=== PATIENT | male | born 1960 | race Caucasian/White ===

== ENCOUNTER 2018-06-01 06:08 | Day surgery (SDC) | payer BC ==
[2018-05-31 10:23] VITALS: BMI 33.0
[2018-06-01] MEDS ORDERED: DESFLURANE GAS 240 ML BOTTLE IH ONE (07:28)
[2018-06-01] MEDS ORDERED: DEXMEDETOMIDINE HCL 200 MCG/2 ML IVPB ONE (07:28)
[2018-06-01] MEDS ORDERED: IBUPROFEN 800 MG/8 ML IJ IVPB ONE (07:28)
[2018-06-01] MEDS ORDERED: SODIUM CHLORIDE 0.9% P/F 10 ML VIAL IJ ONE (07:30)
[2018-06-01] MEDS ORDERED: DEXAMETHASONE SOD PHOSPHATE 4 MG/1 ML VIAL ONE (07:30)
[2018-06-01] MEDS ORDERED: LIDOCAINE HCL/PF 2% SDV 5ML VIAL ONE (07:30)
[2018-06-01] MEDS ORDERED: ceFAZolin SODIUM 1 GM VIAL ONE (07:30)
[2018-06-01] MEDS ORDERED: PROPOFOL 20 ML ONE ×2 (07:31→07:45)
[2018-06-01] MEDS ORDERED: SUCCINYLCHOLINE CHLORIDE 200 MG/10 ML VIAL ONE (07:31)
[2018-06-01] MEDS ORDERED: MIDAZOLAM HCL 2 MG/2 ML SINGLE DOSE VIAL ONE (07:31)
--- NOTE | 2018-06-01 08:10 | HP ---
Admitting History and Physical - Admission Chief Complaint: back sebaceous cyst History of Present Illness: 58 y.o. male with history of infected back sebaceous cyst 2 months ago requiring I & D. Patient now presents for excision of the residual cyst wall. History Source: Patient Limitations to Obtaining History: No Limitations - Smoking History Smoking history: Never smoked - Alcohol/Substance Use Hx Alcohol Use: Yes (occas) Home Medications - Allergies Allergies/Adverse Reactions: Allergies Allergy/AdvReac Type Severity Reaction Status Date / Time No Known Drug Allergies Allergy Verified 05/31/18 10:28 - Home Medications Home Medications: Ambulatory Orders Atorvastatin Ca [Lipitor] 40 mg PO HS 06/01/18 Fenofibrate Nanocrystallized [Tricor] 145 mg PO DAILY 06/01/18 Ibuprofen 1 tab PO TID PRN #30 tablet 06/01/18 Latanoprost 2.5 ml OP DAILY 06/01/18 Ramipril 5 mg PO DAILY 06/01/18 Timolol Maleate 5 ml OP DAILY 06/01/18 Review of Systems - Review of Systems Constitutional: reports: No Symptoms Eyes: reports: No Symptoms HENT: reports: No Symptoms Neck: reports: No Symptoms Cardiovascular: reports: No Symptoms Respiratory: reports: No Symptoms Gastrointestinal: reports: No Symptoms Genitourinary: reports: No Symptoms Musculoskeletal: reports: No Symptoms Integumentary: reports: No Symptoms Physical Examination Vital Signs: Vital Signs Temperature 98.1 F 06/01/18 06:30 Pulse Rate 62 06/01/18 06:30 Respiratory Rate 20 06/01/18 06:30 Blood Pressure 127/83 06/01/18 06:30 O2 Sat by Pulse Oximetry (%) 95 06/01/18 06:30 Constitutional: Yes: Well Nourished Eyes: Yes: Conjunctiva Clear HENT: Yes: Normocephalic Neck: Yes: Supple Cardiovascular: Yes: Regular Rate and Rhythm Respiratory: Yes: CTA Bilaterally Integumentary: Yes: Other (2 cm scar with a central sinus and ill-defined nodule ) Problem List - Problems (1) Sebaceous cyst Assessment/Plan: excision of back sebaceous cyst under MAC Code(s): L72.3 - SEBACEOUS CYST
[2018-06-01] MEDS ORDERED: ceFAZolin SODIUM 1 GM VIAL IVPB ONE (08:19)
[2018-06-01] MEDS ORDERED: BENZOIN TINCTURE SWABSTICK TP ONE (08:39)
[2018-06-01] MEDS ORDERED: ONDANSETRON 4 MG/2 ML VIAL IVPUSH PRN (09:14)
[2018-06-01] MEDS ORDERED: oxyCODONE HCL 5 MG TABLET PO PRN (09:14)
[2018-06-01] MEDS ORDERED: LACTATED RINGERS SOLUTION 1,000 ML IV SCH (09:15)
--- NOTE | 2018-06-01 09:26 | OP ---
DATE OF OPERATION: 06/01/2018 PROCEDURE: Excision of back sebaceous cyst. PREOPERATIVE DIAGNOSIS: Sebaceous cyst of the back. POSTOPERATIVE DIAGNOSIS: Sebaceous cyst of the back. SURGEON: Clement Day MD ANESTHESIA: Local with sedation. FINDINGS ON PROCEDURE: This is a 58-year-old male who presented 2 months ago with an infected sebaceous cyst of the back with an abscess, and incision and drainage of the abscess was done at the office with subsequent resolution of the problem. Now, patient presents for excision of the cystic mass. Consent was obtained after discussing the risks, benefits, and alternatives of the procedure. Patient was brought to the operating room and placed in supine or left lateral decubitus position. Intravenous sedation was given by anesthesia team. The operative site was prepped and draped in the usual sterile fashion. Using lidocaine 1% with epinephrine, local anesthesia was administered to the proposed incision site. A 2 x 0.5 cm elliptical incision was made using scalpel blade No. 15. Resection was carried down to the deep dermis. Further dissection using Metzenbaum scissors was done combined with Bovie cautery down to the subcutaneous tissue incorporating the residual cyst wall together with the ellipse of skin. The wound was undermined to about 0.5 cm on each wound margin using Metzenbaum scissors and Bovie cautery. Hemostasis was achieved using Bovie cautery. The wound was irrigated with sterile normal saline. The wound was then closed with interrupted Vicryl 3-0 suture for the dermis and continuous Biosyn 4-0 suture for the subcuticular layer. The wound closure was reinforced with Steri-Strips and covered with pressure dressing. The patient was transferred to the post-anesthesia care unit in satisfactory condition. ESTIMATED BLOOD LOSS: About 2 mL. WOUND CLASS: Clean. Jerrod [id number] MTDD
[2018-06-01 10:49] VITALS: BP 123/52; PULSE 57; TEMP 97.8
--- NOTE | 2018-06-04 15:15 | PATH ---
Surgical Pathology Report Patient Name: AKILAH SKELTON Med. Rec. #: [id number] /Age/Gender: 1960 (Age: 58) / M Account: [id number] Location: [facility] Taken: 06/01/2018 Received: 06/01/2018 Reported: 06/04/2018 Physicians: Clement Day M.D. Specimen(s) Received SEBACEOUS CYST Clinical History Sebaceous cyst of back Final Diagnosis SEBACEOUS CYST, BACK, EXCISION: SKIN AND UNDERLYING SUBCUTANEOUS TISSUE WITH CHRONIC INFLAMMATION, ASSOCIATED GIANT CELL REACTION, AND FIBROSIS. NO EPITHELIAL CYST LINING IDENTIFIED. Comment: Findings may represent a ruptured and inflamed cyst with associated reactive changes. Suggest clinical correlation. Electronically Signed Dali Hickman M.D. Gross Description Received in formalin labeled "sebaceous cyst from back," is a 1.2 x 0.3 cm adams, elliptical, unoriented portion of skin excised to depth of 1.0 cm. Sectioning reveals fibrous tissue. No definitive cyst is identified grossly. The specimen is serially sectioned and entirely submitted in one cassette. /06/01/2018 saudi06/01/2018
== END 2018-06-01 10:10 | disposition home or self-care (01) ==
LOC: JASU-SURG 06:08
PROVIDERS: ATTEND Surgery
PROC: 0HB6XZZ Excision of Back Skin, External Approach (ICD-10-PCS; principal; 2018-06-01 08:00)
DX: L72.3 Sebaceous cyst (principal)
CPT/HCPCS: 88304-TC

== ENCOUNTER 2023-11-29 03:08 | Emergency (ER) | payer BC ==
[2023-11-29 03:22] VITALS: BP 97/65; PULSE 71; RESP 20; TEMP 97.4; BMI 27.1
[2023-11-29] MEDS ORDERED: KETOROLAC TROMETHAMINE 15 MG/ML VIAL ONE (03:47)
[2023-11-29] MEDS ORDERED: METHOCARBAMOL 500 MG TABLET ONE (03:47)
[2023-11-29 03:50] LABS: BASO % 0.2 % (0-2.0); EOS % 0.4 % (0-4.5); HEMATOCRIT 51.4 % (35.4-49); HEMOGLOBIN 16.9 GM/dL (11.7-16.9); LYMPH % 14.1 % (8-40); MCH 27.3 pg (25.7-33.7); MEAN CELL VOLUME 82.7 fl (80-96); MEAN PLT VOLUME 8.9 fl (7.5-11.1); MONO % 5.6 % (3.8-10.2); NEUT % 79.7 % (42.8-82.8); PLATELET COUNT 280 10^3/uL (134-434); RBC 6.21 M/mm3 (4.00-5.60); RDW 14.2 % (11.9-15.9); WHITE BLOOD COUNT 14.1 K/mm3 (4.0-10.0)
[2023-11-29] MEDS: METHOCARBAMOL 500 MG TABLET PO ONE (03:52)
[2023-11-29] MEDS: KETOROLAC TROMETHAMINE 15 MG/ML VIAL IVPUSH ONE (03:52)
[2023-11-29] MEDS ORDERED: LIDOCAINE 5% TOPICAL PATCH ONE (04:11)
[2023-11-29 04:13] LABS: POTASSIUM 4.1 mmol/L (3.5-5.1)
[2023-11-29 04:14] LABS: CALCIUM 9.5 mg/dL (8.5-10.1)
[2023-11-29 04:15] LABS: ALBUMIN 4.5 g/dl (3.4-5.0); BLOOD UREA NITROGEN 18.5 mg/dL (7-18); MAGNESIUM 2.4 mg/dL (1.8-2.4)
[2023-11-29] MEDS: LACTATED RINGERS SOLUTION 1000 ML INFUS.BAG IV ONE (04:16)
[2023-11-29] MEDS: LIDOCAINE 5% TOPICAL PATCH TP ONE (04:16)
[2023-11-29 04:18] LABS: CREATININE 1.4 mg/dL (0.55-1.3)
[2023-11-29 04:20] LABS: BILIRUBIN,TOTAL 0.5 mg/dL (0.2-1); TOT PROT 7.7 g/dl (6.4-8.2)
[2023-11-29 05:10] LABS: HIV INTERPRETATION NEGATIVE (NEGATIVE)
[2023-11-29 15:37] LABS: N-TERMINAL BNP 17.5 pg/ml (5-125)
[2023-11-29] MEDS ORDERED: LIDOCAINE PATCH REMOVAL MC SCH (22:00)
== END 2023-11-29 05:47 | disposition home or self-care (01) ==
LOC: JER 03:08
PROC: 3E0333Z Introduction of Anti-inflammatory into Peripheral Vein, Percutaneous Approach (ICD-10-PCS; principal; 2023-11-29)
DX: M54.50 Low back pain, unspecified (principal); X50.0XXA Overexertion from strenuous movement or load, initial encounter
CPT/HCPCS: 36415; 71045-TC-FY; 80053; 83605; 83735; 83880; 84484; 85025; 86803; 86850; 86900; 86901; 87389; 93005; 93010; 99285-25

== ENCOUNTER 2023-11-29 13:23 | Inpatient (IN) | payer BC ==
[2023-11-29] MEDS ORDERED: METHOCARBAMOL 500 MG TABLET ONE (14:23)
[2023-11-29] MEDS: METHOCARBAMOL 500 MG TABLET PO ONE (15:00)
[2023-11-29 15:09] LABS: POTASSIUM 5.1 mmol/L (3.5-5.1)
[2023-11-29 15:12] LABS: ALBUMIN 3.9 g/dl (3.4-5.0); BLOOD UREA NITROGEN 15.6 mg/dL (7-18); CALCIUM 7.7 mg/dL (8.5-10.1)
[2023-11-29 15:15] LABS: CREATININE 1.1 mg/dL (0.55-1.3)
[2023-11-29 15:17] LABS: BILIRUBIN,TOTAL 0.5 mg/dL (0.2-1); TOT PROT 6.9 g/dl (6.4-8.2)
[2023-11-29 15:36] LABS: N-TERMINAL BNP 17.6 pg/ml (5-125)
[2023-11-29] MEDS ORDERED: METHOCARBAMOL 750 MG TABLET PO PRN (15:41)
[2023-11-29] MEDS ORDERED: LIDOCAINE 5% TOPICAL PATCH TP PRN (15:45)
[2023-11-29 18:07] VITALS: BMI 31.3
[2023-11-29] MEDS: DEXAMETHASONE SOD PHOSPHATE 10 MG/1 ML VIAL IM SCH (18:56)
[2023-11-29] MEDS ORDERED: DEXAMETHASONE SOD PHOSPHATE 10 MG/1 ML VIAL IVPB SCH (19:30)
[2023-11-29] MEDS: ALBUTEROL SO4 2.5/IPRATROPIUM 0.5 INH SOL 3 ML VIAL.NEB. NEB SCH (20:02)
[2023-11-29] MEDS: traMADol HCL 50 MG TABLET PO PRN (21:06)
[2023-11-29] MEDS: DEXAMETHASONE SOD PHOSPHATE 10 MG/1 ML VIAL IVPB SCH (21:08)
[2023-11-29] MEDS: HEPARIN NA (PORCINE) 5,000 UNITS/ML 1ML VIAL SQ SCH (21:08)
[2023-11-29] MEDS: ATORVASTATIN CA 40 MG TABLET (FP) PO SCH (21:09)
[2023-11-29] MEDS: LIDOCAINE PATCH REMOVAL MC SCH (21:09)
[2023-11-30 04:07] VITALS: TEMP 97.7
[2023-11-30 06:27] VITALS: BP 123/82; PULSE 49; RESP 17
[2023-11-30] MEDS: METHOCARBAMOL 500 MG TABLET PO PRN (06:39)
[2023-11-30 06:53] LABS: HEMATOCRIT 47.4 % (35.4-49); HEMOGLOBIN 15.2 GM/dL (11.7-16.9); MCH 26.9 pg (25.7-33.7); MCHC 32.1 g/dl (32.0-35.9); MEAN CELL VOLUME 83.9 fl (80-96); PLATELET COUNT 198 10^3/uL (134-434); RBC 5.66 M/mm3 (4.00-5.60); RDW 13.5 % (11.9-15.9); WHITE BLOOD COUNT 6.5 K/mm3 (4.0-10.0)
[2023-11-30 07:10] LABS: POTASSIUM 4.8 mmol/L (3.5-5.1)
[2023-11-30 07:18] LABS: BLOOD UREA NITROGEN 21.4 mg/dL (7-18); MAGNESIUM 1.9 mg/dL (1.8-2.4)
[2023-11-30 07:20] LABS: BILIRUBIN,TOTAL 0.6 mg/dL (0.2-1)
[2023-11-30 07:21] LABS: CREATININE 1.1 mg/dL (0.55-1.3); TOT PROT 6.7 g/dl (6.4-8.2)
[2023-11-30 07:37] LABS: CALCIUM 9.1 mg/dL (8.5-10.1)
[2023-11-30] MEDS: RAMIPRIL 5 MG CAPSULE PO SCH (09:15)
[2023-11-30] MEDS: FENOFIBRIC ACID 135 MG CAP PO SCH (09:15)
[2023-11-30 09:16] LABS: ANISOCYTOSIS 0; MACROCYTOSIS 0
== END 2023-11-30 11:41 | disposition home or self-care (01) | DRG 552 ==
LOC: JER 13:23 → JERBED 14:14 → OBSVTOIN 15:36 → J4W 17:40
PROVIDERS: ADMIT Family Medicine; ATTEND Family Medicine
DX: M54.50 Low back pain, unspecified (principal); I10 Essential (primary) hypertension; F17.210 Nicotine dependence, cigarettes, uncomplicated; E78.1 Pure hyperglyceridemia; R06.02 Shortness of breath; J44.9 Chronic obstructive pulmonary disease, unspecified
CPT/HCPCS: 36415; 71046-TC-FY; 72131-TC; 80053; 80061; 83036; 83735; 83880; 84443; 84484; 85025; 93005; 93010; 94640; 99285-25; G0378; J1100; J1644